=== PATIENT | female | born 1980 | race Caucasian/White ===

== ENCOUNTER 2017-07-31 16:56 | Inpatient (IN) | payer BC ==
[~2017-07-31] VITALS: Ht 157.5 cm; Wt 98.7 kg
[2017-07-31 17:31] VITALS: BP 154/84
[2017-07-31 18:50] LABS: BILIRUBIN,URINE NEGATIVE (NEGATIVE); UROBILINOGEN,URINE NORMAL (NEGATIVE)
--- NOTE | 2017-07-31 18:54 | ER.PDOC ---
General Chief Complaint: Abdomen Pain Stated Complaint: ABD PAIN Time seen by MD: 18:40 Source: patient, family Exam Limitations: no limitations History of Present Illness Initial Comments States generalized ab pains for 1 month. Intermittent but worsening for past 2 weeks. 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 Also hx sliding LLQ ventral hernia she usually self-reduces, but due to current pain, has not tried. No N/V, No diarrhea or const. Has had WILLIAM/BSO due to DUB and FH of uterine CA. Has had lap pramod. Still has appendix. Timing/Duration: 1-3 hours Severity/Quality: moderate Radiation: no radiation Associated Symptoms: denies symptoms Exacerbated by: nothing Relieved By: nothing Allergies: Coded Allergies: Penicillins (Verified Allergy, Unknown, HIVES, 07/31/17) Home Meds No Active Prescriptions or Reported Meds Vital Signs First Vital Signs Date Time Temp Pulse Resp B/P (MAP) Pulse Ox O2 Delivery O2 Flow Rate FiO2 07/31/17 17:29 97.8 71 20 96 07/31/17 17:31 154/84 (107) Last Vital Signs Date Time Temp Pulse Resp B/P (MAP) Pulse Ox O2 Delivery O2 Flow Rate FiO2 07/31/17 17:31 97.8 80 20 154/84 (107) 96 Past Medical History Medical History: no pertinent history Surgical History: cholecystectomy, hysterectomy Social History Smoking: non-smoker Drug Use: none Constitutional: no symptoms reported EENTM: no symptoms reported Respiratory: no symptoms reported Cardiovascular: no symptoms reported Gastrointestinal: see HPI Genitourinary: no symptoms reported Musculoskeletal: no symptoms reported Skin: no symptoms reported Psychiatric/Neurological: no symptoms reported All Other Systems: Reviewed and Negative Physical Exam General Appearance: WD/WN, Moderate Distress HEENT: PERRL/EOMI, Normal ENT Inspection Neck: Non-Tender, Full Range of Motion, Supple Respiratory: chest non-tender, lungs clear, normal breath sounds Cardiovascular: Normal Peripheral Pulses, Regular Rate, Rhythm, No Edema Gastrointestinal: Normal Bowel Sounds, Soft, Guarding, Hernia, Other (Hernia LLQ. 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 Victoria at 19:00. Unable to successfully reduce the hernia and very painful. EKG/XRAY/CT/US CT Comments: Large infraumbilical hernia without stangulation or obstruction Course Blood Pressure Systolic: 154 Blood Pressure Diastolic: 84 Blood Pressure Mean: 107 Departure Time of Disposition: 21:00 Disposition: 01 HOME, SELF-CARE Impression: Primary Impression: Incarcerated ventral hernia Condition: Stable Referrals: Susan WILLIAMSON MD (PCP) PRIMARY CARE PROVIDER Scripts No Active Prescriptions or Reported Meds Comments Admitted to Dr. Barahona. Spoke to Dr. Rubi who will consult. Duration or Time Spent with Pa: 2 hours FITO GEORGE DO Jul 31, 2017 18:54 VIVIAN GUILLEN MD Jul 31, 2017 20:46
[2017-07-31 18:58] LABS: BASOPHIL # 0.1 10^3/uL (0.0-0.1); BASOPHIL % 0.4 % (0.0-0.2); EOSINOPHIL # 0.1 10^3/uL (0.0-0.2); HEMOGLOBIN 14.6 g/dL (12.0-15.0); LYMPHOCYTES # 2.1 10^3/uL (1.0-4.8); LYMPHOCYTES % 16.5 % (24.0-44.0); MEAN CELL HGB 26.2 pg (26-34); MEAN CELL HGB CONCENTRATION 31.5 g/dL (33-37); MEAN PLATELET VOLUME 9.8 fL (7.8-11.0); MONOCYTES # 0.8 10^3/uL (0.3-0.8); MONOCYTES % 5.9 % (5.0-12.0); NEUTROPHIL # 9.7 10^3/uL (1.8-7.7); WHITE BLOOD CELL 12.8 10^3/uL (4.5-11.0)
[2017-07-31] MEDS ORDERED: MORPHINE SULFATE IV ONE (19:00)
[2017-07-31] MEDS ORDERED: MORPHINE SULFATE ONE ×2 (19:01→23:18)
[2017-07-31 19:04] LABS: APPEARANCE,URINE CLEAR (CLEAR); UA COLOR YELLOW (YELLOW)
[2017-07-31] MEDS ORDERED: ZOFRAN IV STA (19:08)
[2017-07-31] MEDS ORDERED: ZOFRAN ONE (19:08)
[2017-07-31 19:13] LABS: CALCIUM 9.1 mg/dL (8.4-10.5)
--- NOTE | 2017-07-31 19:45 | NUR ---
CT PATIENT TO CT VIA WHEELCHAIR
[2017-07-31 19:51] VITALS: BP 112/82
--- NOTE | 2017-07-31 19:53 | NUR ---
RETURN TO ROOM PATIENT RETURNED ROOM IN UNCHANGED CONDITION
[2017-07-31] MEDS ORDERED: NS 1000ML 1,000 ML IV STA (20:01)
[2017-07-31] MEDS ORDERED: NS 1000ML 1,000 ML ONE (20:02)
--- NOTE | 2017-07-31 20:16 | DIREP ---
PROCEDURE:CT ABDOMEN/PELVIS W/ CONTRAST COMPARISON:None. INDICATIONS:Ab Pain LLQ TECHNIQUE:Axial images were created through the abdomen and pelvis with non-ionic intravenous contrast material. No oral contrast was administered. Sagittal and coronal reconstructions were performed from source images. FINDINGS: LUNG BASES:Normal. No visible pulmonary or pleural disease. LIVER:Normal. No significant liver lesions are identified. BILIARY:The gallbladder is surgically absent. There is no biliary ductal dilatation. PANCREAS:Normal. No lesion, fluid collection, ductal dilatation, or atrophy. SPLEEN:Normal. No enlargement or focal lesion. ADRENALS:Normal. No mass or enlargement. URINARY TRACT:Normal. No focal lesions or hydronephrosis. AORTA/VASCULAR:Normal. No aneurysm. RETROPERITONEUM:Normal. No mass or adenopathy. BOWEL/MESENTERY:Small bowel is normal caliber. Mild fecal retention in the colon. No evidence of wall thickening or fluid seen within the hernia containing a loop of the transverse colon. ABDOMINAL WALL:Large infraumbilical hiatus hernia containing a loop of the transverse colon that measures 16.2 x 9.5 x 12 cm. PELVIC ORGANS:The uterus is surgically absent. No visible mass. BONES:Bilateral pars defect of L5 with grade 1 anterolisthesis measuring 5.9 mm. OTHER:Negative. CONCLUSION: Large infraumbilical ventral hernia containing a large loop of the transverse colon. No evidence for obstruction or strangulation. Dictated by: Taran Schaefer MD on 07/31/2017 at 08:08 PM
--- NOTE | 2017-07-31 20:53 | NUR ---
DR CANDELARIA GRANTA SPEAKING WITH WITH DR GAONA PATIENT TO BE ADMITTED PENDING HOSPITALIST ACCEPTANCE
--- NOTE | 2017-07-31 21:04 | PRM.ACF1 ---
Date and Time Date and Time Time: 21:04 Admission Criteria Forms ABDOMINAL PAIN Clinical Indications for Admission to Inpatient Care ( [facility] [place]/check or initial the applicable condition/criteria): Admission is indicated for ANY ONE of the following (1)(2)(3)(4)(5)(6): [ x]I. Surgery needed that cannot be performed on ambulatory basis [ ]II. Peritoneal signs present (eg, rebound tenderness, rigidity) [ ]III. Evaluation requires patient to not eat or drink for extended period ( eg, more than 24 hours). [ ]IV. Inpatient admission required[B] rather than observation care (see Abdominal Pain: Observation Care guideline as appropriate) because of ANY ONE of the following(7)(8)(9): [ ] a) Hemodynamic instability [ ]b) Severe pain requiring acute inpatient management [ ]c) Identification of etiology or finding that requires inpatient care (eg, aortic dissection, free air,bowel ischemia)(10) [ ]d) Absent bowel sounds with complete ileus (11) [ ]e) Signs of intestinal obstruction[C] [ ]f) Suspected toxic megacolon [ ]g) Severe electrolyte abnormalities requiring inpatient care [ ]h) High fever or infection requiring inpatient admission as indicated by ANY ONE of the following (12)(13): [ ]i) Appropriate outpatient or observation care antimicrobial treatment unavailable, not effective, or not feasible [ ]ii) Documented bacteremia [ ]iii) Temperature greater than 104.9 degrees F (40.5 degrees C) (oral) [ ]iv) Temperature greater than 103.1 degrees F (39.5 degrees C) ( oral) or less than 96.8 degrees F (36 degrees C) (rectal) that does not respond to all emergency treatment measures [ ]i) IV fluid required rather than oral rehydration to replace significant ongoing (eg, for greater than 24 hours) losses (greater than 3 L/m2 per day)(14)(15) [ ]j) Percutaneous or open drainage (eg, abscess, biliary tract) procedures [ ]k) Parenteral nutrition regimen that must be implemented on inpatient basis [ ]l) Other condition, treatment, or monitoring requiring inpatient admission Extended stay beyond goal length of stay may be needed for (1)(3)(4)(10)(16): [ ]a) Surgery (e.g., colectomy, revascularization procedure) [ ]b) Persistent abdominal pain with suspected intra-abdominal process [ ]c) Diagnosed condition requiring continued stay (e.g., pancreatitis, complicated diverticulitis) The original [facility] [employer] content created by [facility] has been revised. The portions of the content which have been revised are identified through the use of italic text, and [facility] has neither reviewed nor approved the modified material.All other unmodified content is copyright [facility]. Please see references footnoted in the original [facility] edition 2015 VIVIAN GUILLEN MD Jul 31, 2017 21:04
--- NOTE | 2017-07-31 21:07 | NUR ---
DR SUNNY LAND WITH DR CORREA , PATIENT TO BE ADMITTED TO MED SURG
[2017-07-31 21:09] VITALS: BP 121/72
--- NOTE | 2017-07-31 21:25 | NUR ---
DR CANDELARIA GAONA AT BEDSIDE
[2017-07-31] MEDS ORDERED: DULCOLAX EC TABLET PO STA (21:56)
[2017-07-31] MEDS ORDERED: D5W-1/2 NS/KCL 20MEQ 1,000 ML ONE (21:59)
[2017-07-31] MEDS ORDERED: ZOFRAN IV PRN (22:00)
--- NOTE | 2017-07-31 22:04 | NUR ---
ARRIVAL PT ARRIVED TO FLOOR VIA W/C. NO S/S OF DISTRESS NOTED. WILL CONT TO MONITOR. CALL LIGHT WITHIN REACH.
--- NOTE | 2017-07-31 22:04 | NUR ---
report report called to Lu PlasenciaRN
[2017-07-31] MEDS ORDERED: PEPCID ONE (22:09)
[2017-07-31] MEDS ORDERED: NS 100ML 100 ML IV ONE (22:09)
[2017-07-31] MEDS ORDERED: MEFOXIN ONE (22:13)
[2017-07-31 22:15] VITALS: BP 135/87
[2017-07-31] MEDS: SINGULAIR PO SCH (22:24)
[2017-07-31] MEDS: PEPCID IV SCH (22:25)
[2017-07-31] MEDS ORDERED: VENTOLIN IH PRN (22:30)
[2017-07-31] MEDS ORDERED: ATROVENT IH PRN (22:30)
[2017-07-31] MEDS: LOVENOX SQ SCH (22:34)
[2017-07-31] MEDS: MEFOXIN 1 GM in NS 100ML 100 ML IV SCH (22:35)
[2017-07-31] MEDS: D5W-1/2NS 1000ML 1,000 ML IV SCH ×2 (22:42)
[2017-07-31] MEDS: KLOR-CON 10 PO SCH (22:42)
--- NOTE | 2017-07-31 23:12 | NUR ---
CONSENT SURGICAL CONSENT SIGNED
[2017-07-31] MEDS: MORPHINE SULFATE IV PRN (23:20)
[2017-08-01] VITALS (8 sets, daily range): BP systolic 94–150; BP diastolic 50–83
--- NOTE | 2017-08-01 | NUR ---
NPO PT NPO @ 0000. PT TEACHING GIVEN. PT VERBALIZED UNDERSTANDING. WILL CONT TO MONITOR.
[2017-08-01] MEDS: KLOR-CON 10 PO SCH (01:51)
[2017-08-01] MEDS ORDERED: MEFOXIN ONE ×2 (05:08→09:27)
[2017-08-01] MEDS ORDERED: NS 100ML 100 ML IV ONE ×2 (05:13→09:27)
[2017-08-01] MEDS ORDERED: MORPHINE SULFATE ONE (05:14)
[2017-08-01] MEDS: MORPHINE SULFATE IV PRN (05:23)
[2017-08-01] MEDS: D5W-1/2NS 1000ML 1,000 ML IV SCH ×3 (05:45→12:56)
[2017-08-01] MEDS: MEFOXIN 1 GM in NS 100ML 100 ML IV SCH ×3 (05:45)
[2017-08-01] MEDS ORDERED: ATROVENT IH SCH ×2 (08:00)
[2017-08-01] MEDS ORDERED: DUONEB 0.5 MG-3 MG/3 ML SOLN IH ONE ×2 (08:06→08:59)
[2017-08-01] MEDS ORDERED: LACTATED RINGERS 1,000 ML ONE (08:11)
[2017-08-01] MEDS: PEPCID IV SCH ×2 (08:28→20:18)
[2017-08-01] MEDS: PULMICORT IH SCH ×2 (08:28→20:17)
[2017-08-01] MEDS: DUONEB 0.5 MG-3 MG/3 ML SOLN IH SCH ×3 (08:31→20:17)
[2017-08-01] MEDS ORDERED: MORPHINE SULFATE IV PRN ×2 (08:49→12:30)
[2017-08-01] MEDS ORDERED: SODIUM CHLORIDE IR ONE (08:54)
[2017-08-01] MEDS ORDERED: SENSORCAINE-MPF 0.5% VIAL ONE (08:54)
[2017-08-01] MEDS ORDERED: SODIUM CHLORIDE IRR BAG 1,000 ML ONE (08:54)
[2017-08-01] MEDS ORDERED: DECADRON ONE ×2 (09:02→09:04)
[2017-08-01] MEDS ORDERED: NEOSTIGMINE ONE (09:03)
[2017-08-01] MEDS ORDERED: ZOFRAN ONE (09:03)
[2017-08-01] MEDS ORDERED: QUELICIN ONE (09:03)
[2017-08-01] MEDS ORDERED: LIDOCAINE 2% VIAL ONE (09:03)
[2017-08-01] MEDS ORDERED: DILAUDID ONE (09:03)
[2017-08-01] MEDS ORDERED: ZEMURON IV ONE (09:03)
[2017-08-01] MEDS ORDERED: TORADOL ONE (09:03)
[2017-08-01] MEDS ORDERED: DIPRIVAN IV ONE (09:04)
[2017-08-01] MEDS ORDERED: SUBLIMAZE ONE (09:04)
[2017-08-01] MEDS ORDERED: NAROPIN 0.2% 40 MG/20 ML VIAL ONE (09:04)
[2017-08-01] MEDS ORDERED: LACTATED RINGERS 2,000 ML ONE (09:05)
--- NOTE | 2017-08-01 09:08 | NUR ---
OFF UNIT PT OFF UNIT OT OR AT THIS TIME
[2017-08-01] MEDS ORDERED: VENTOLIN IH ONE (09:14)
--- NOTE | 2017-08-01 09:58 | HPH ---
ADMIT DATE: 08/01/2017 CHIEF COMPLAINT: Abdominal pain. HISTORY OF PRESENT ILLNESS: The patient is a 37-year-old woman with a past medical history significant for asthma with large ventral hernia. She complained of abdominal pain that has been intermittent for about a month, but worsening over the last 2 weeks. About 30 minutes prior to arrival to the ER, the pain became severe in nature. She has a known ventral hernia and usually is able to reduce the hernia herself. She denied any nausea, vomiting or diarrhea. She has no recent trauma. She has had prior surgeries including cholecystectomy and total hysterectomy. She is ambulatory. She is not on home oxygen. She does take nebulizer treatments occasionally. PAST MEDICAL HISTORY: Includes asthma. PAST SURGICAL HISTORY: She had had a cholecystectomy, hysterectomy. ALLERGIES: NO KNOWN DRUG ALLERGIES. HOME MEDICATIONS: List only includes Singulair, Advair, also takes nebulizer treatments with albuterol as needed. SOCIAL HISTORY: No alcohol, tobacco or illicit drug use history. Lives at home. FAMILY HISTORY: Negative for early coronary artery disease or diabetes. REVIEW OF SYSTEMS: CARDIAC: Denies chest pain, shortness of breath or dyspnea on exertion. PULMONARY: No cough, sputum production or pleuritic chest pain. GASTROINTESTINAL: No nausea, vomiting, diarrhea or constipation. All else negative in 10 point review of system except as in HPI. PHYSICAL EXAMINATION: VITAL SIGNS: Upon arrival to the ER, height 157.5 cm, weight 99.8 kilograms, temperature 97.8, pulse 80, respiratory rate is 20, blood pressure 154/84, O2 saturation 96% on room air. GENERAL: She is alert, in no acute distress at time of exam, pleasant lady. HEENT: Pupils equal, round, reactive to light. Sclerae are anicteric. Oropharynx is clear. Mucous membranes are moist. NECK: Supple, no lymphadenopathy. CARDIOVASCULAR: At time of exam was regular rate and rhythm. LUNGS: Clear bilaterally at time of exam. No wheezing. ABDOMEN: Soft. Bowel sounds are present. Tender to palpation and had a large ventral hernia noted. EXTREMITIES: No cyanosis, clubbing or significant edema. NEUROLOGIC: Grossly nonfocal. LABORATORY DATA: CBC: White count 12.8, hemoglobin 14.6 and platelets 348. Differential: 76% neutrophils, 16% lymphocytes, 6% monocytes. Sodium 141, potassium 3.4, chloride 105, CO2 is 27, BUN 13, creatinine 1, glucose 132, calcium 9.1, total bilirubin 0.6, AST 7, ALT 12, alkaline phosphatase 79, total protein 7.5, albumin 3.5, lipase is 159. PT of 10.4, PTT 24.1. UA, pH is 5.0, specific gravity is 1.020, all else is negative. IMAGING STUDIES: CT abdomen and pelvis performed in the Emergency Room does reveal a large infraumbilical ventral hernia containing large loop of transverse colon. ASSESSMENT AND PLAN: The patient is a 37-year-old woman here with a ventral hernia containing large loop of bowel without strangulation at this point with significant abdominal pain with history of asthma. 1. From pulmonary point of view, we will continue her Singulair, DuoNeb scheduled, Pulmicort scheduled and albuterol as needed. 2. Appropriate p.r.n. pain and nausea medication. 3. General surgery is consulted for management of ventral hernia. 4. DVT prophylaxis will be with Lovenox. Time spent on 08/01/2017 is 45 minutes. This plan was discussed with the patient. She is her own decision maker. She does understand and concur with plans. Tomas Barahona MD DR: GERALDINE/nola JOB# [id number]
[2017-08-01] MEDS: D5W IV SCH ×2 (12:00→17:23)
[2017-08-01] MEDS: MEFOXIN IV SCH ×2 (12:00→17:23)
[2017-08-01] MEDS ORDERED: DUONEB 0.5 MG-3 MG/3 ML SOLN IH STA (12:13)
[2017-08-01] MEDS: DILAUDID IV PRN ×3 (12:19→12:40)
[2017-08-01] MEDS ORDERED: PHENERGAN IV PRN (12:30)
[2017-08-01] MEDS ORDERED: ZOFRAN IV PRN (12:30)
[2017-08-01] MEDS ORDERED: APRESOLINE IV PRN (12:30)
[2017-08-01] MEDS ORDERED: SUBLIMAZE IV PRN (12:30)
--- NOTE | 2017-08-01 12:47 | NUR ---
ARRIVAL PT ARRIVED FROM OR AT THIS TIME. REPORT RECEIVED AND ASSUMED CARE OF PT
[2017-08-01] MEDS: LACTATED RINGERS 1,000 ML IV SCH ×2 (12:59→22:47)
[2017-08-01] MEDS: NORCO 5MG PO PRN ×2 (15:11→20:19)
--- NOTE | 2017-08-01 17:06 | OPH ---
DATE OF SURGERY: PREOPERATIVE DIAGNOSIS: Recurrent incarcerated incisional hernia in the infraumbilical midline. POSTOPERATIVE DIAGNOSES: 1. Recurrent incisional hernia, incarcerated transverse colon. 2. Partial volvulus of the transverse colon. 3. Extensive intraabdominal adhesions. SURGEON: Conor Rubi DO PILOT SUBMERSIBLE: OR staff. ANESTHESIA: General by Jacque Kim CRNA plus local used on the field as well as a TAP block provided by Anesthesia at the end of the case. PROCEDURES PERFORMED: 1. Laparoscopic lysis of adhesions converted to exploratory laparotomy with release of partial volvulus of transverse colon. 2. Open lysis of adhesions. 3. Open incisional hernia repair. SPECIMENS: Hernia sac to path. ESTIMATED BLOOD LOSS: 43 mL. COUNTS: At the completion of the case, the counts were correct per OR staff. DESCRIPTION OF PROCEDURE: The patient is a 37-year-old female known from previous evaluation. Prior to procedure, informed consent was obtained. At time of procedure, she was taken to the operative suite and placed in supine position. After time-out was completed, general anesthesia was obtained. Keys catheter was inserted by the nursing service. Her abdomen was prepped and draped in normal fashion. Local was used to anesthetize supraumbilical midline. Incision was created and 5 mm trocar was introduced into the abdomen with Endo camera visualization. Once in the abdomen, pneumoperitoneum was induced to the level of 14 mmHg. Next, with camera visualization, the trocar was placed laterally in the right lower quadrant. Next, with 2 point visualization, there was noted to be extensive adhesions in the abdomen. There was noted to be some adhesions in the left upper quadrant from the abdominal wall to the liver, which were taken down using sharp scissors. Next, in the infraumbilical midline, there was noted to be significant adhesions consistent with the CT scan preoperatively visualized. All the easy to identify adhesions were taken down using laparoscopic EndoShears and electrocautery. However, due to concern for visceral organs being involved and inadequate exposure to allow complete visualization, conversion to open was indicated. After reduction of pneumoperitoneum, an infraumbilical incision was created through an existing scar. Electrocautery was used to completely dissect down to the level of the sac, which was entered. It was extended superiorly and inferiorly. It was noted that the transverse colon was involved as a point of fixed adhesion to the left side of the hernia sac causing a partial volvulus of the transverse colon. This was released and subsequently the remainder of the transverse colon was reduced; however, there was noted to be adhesions of the omentum to the sac that were taken down using sharp dissection and electrocautery. Once the entire contents were mobilized and reduced, from the field. The omentum was inspected. There was noted to be a defect in the omentum that was repaired using a running 2-0 Vicryl suture. After omentopexy was completed, the abdominal contents were returned. Fascia was cleared superficially to allow exposure and the hernia sac was removed from the surrounding tissues using electrocautery. So, there was not significant tissue tension and the mesh that was described as being used previously on the patient was not identified. Subsequently, the defect was repaired from the superior apex with running looped PDS to the midportion and a second partially looped PDS in the inferior portion and the mid portion. After the defect was completely repaired, the wound bed was irrigated. The umbilical stalk was reapproximated with the fascia using a 2-0 Vicryl suture. With the existing laparoscopy trocars, pneumoperitoneum was reinduced. There was noted to be no signs of air leak from the fluid that was placed in the incision site. The visceral contents were inspected. There was noted to be good hemostasis and no signs of visceral organ injury. Next, a piece of Seprafilm was brought onto the field, made into a slurry and placed into the lower abdomen at the site of previous adhesions. After this was completed, the lateral trocar was removed with camera visualization. There was noted to be no bleeding. The superior trocar was removed with camera visualization after reduction of pneumoperitoneum with camera visualization through the trocar tract. In the infraumbilical incision, a drain was passed out through a lateral stab incision, secured with a nylon suture. This deep tissue was closed with interrupted 2-0 Vicryl, subcutaneous tissue was closed with interrupted 3-0 Vicryl and skin was closed with 4-0 Monocryl in running subcuticular fashion. The patient was cleaned. Steri-Strips and dressings were applied. Drapes removed. The patient currently remains in the OR under the care of the Department of Anesthesia for a TAP block. After that is completed, then we will awaken her and deliver her to the recovery room. Conor Rubi DO DR: Clarice JOB# [id number] CC: . Valentino Barahona MD MTDKrystian
--- NOTE | 2017-08-01 18:27 | NUR ---
REPORT REPORT GIVEN TO Rafiq PLASCENCIA LVN AND RELINQUISHED CARE
--- NOTE | 2017-08-01 18:58 | NUR ---
Report Received report Artemio Escobar LVN
--- NOTE | 2017-08-01 20:00 | NUR ---
Patient up ambulating in hallway. Tolerating well
[2017-08-01] MEDS: SINGULAIR PO SCH (20:19)
--- NOTE | 2017-08-01 20:21 | CNH ---
DATE OF CONSULTATION: CHIEF COMPLAINT: Incarcerated hernia. HISTORY OF PRESENT ILLNESS: This is a 37-year-old female who presents to ER at [facility]. She reports to me that she had a midline hernia repaired 4 years ago at the same time she was having hysterectomy and bladder repair. This was done in another facility and they used mesh, but she is uncertain if it was an overlay or inlay and what type of mesh was used. She reports that approximately 6 months ago, she noticed a recurrence of her hernia and that she has typically had no problems, but over the last 2 weeks, she has been unable to reduce it. It has become more and more uncomfortable. After she ate supper tonight, the pain became fairly significant. She presented to the ER at [facility] where she was evaluated, had a CAT scan and lab studies that show changes consistent with incarcerated, but not strangulated hernia. She was initially scheduled to be admitted to the floor. However, I saw her in the Emergency Department and again on the floor. She reports that her pain was improved with the IV morphine. She denies any nausea, vomiting, fever, chills or other constitutional symptoms. She is very cooperative with my history and physical. PAST MEDICAL HISTORY: She only reports asthma. She clearly denies hypothyroidism, diabetes or hypertension. PAST SURGICAL HISTORY: Includes laparoscopic cholecystectomy, , hysterectomy, bladder suspension and hernia repair. ALLERGIES: INCLUDE PENICILLIN per her report. OUTPATIENT MEDICATIONS: Include albuterol p.r.n., Singulair 10 mg p.o. at bedtime and Advair. INPATIENT MEDICATIONS: Will be per the electronic medical record. SOCIAL HISTORY: Negative for tobacco or illicit drug use, is positive for rare alcohol consumption. FAMILY HISTORY: Father is living at age 70 and is relatively unhealthy. Mother is living in her 60s and has a history of breast cancer on more than one occasion. REVIEW OF SYSTEMS: CONSTITUTIONAL: No fever, chills or weakness. ENDOCRINE: She denies thyroid disease or known diabetes. CARDIOVASCULAR: She denies chest pain, trouble breathing at this time. PULMONARY: She has no acute dyspnea or cough, but she reports her last asthma attack was in the last 2 weeks. She has a strong history for asthma. SEASONAL ALLERGIES: She does report some seasonal allergies and associated variation with her asthma. ABDOMEN: As per HPI. MUSCULOSKELETAL: No acute complaints. NEUROLOGIC: She denies any history of seizure or blackouts. PSYCHIATRIC: She denies depression, stress or anxiety. GENITOURINARY: She denies dysuria, frequency, urgency. PHYSICAL EXAMINATION: VITAL SIGNS: Afebrile female, last temperature is 97.8, pulse 61, respiratory rate of 16, blood pressure 121/72 and O2 sat is 95%. GENERAL: Alert and pleasant 37-year-old female who is oriented x 3. She is cooperative with exam and very pleasant. HEENT: Normocephalic, atraumatic. [place] mucous membranes. NECK: Supple and soft. Trachea is midline. She has no JVD or thyromegaly. HEART: Has essentially regular rate and rhythm without obvious murmur. LUNGS: Clear to auscultation posteriorly, but there is a slight expiratory wheeze noted on the left side on complete examination. ABDOMEN: The bowel sounds are positive and soft. Infraumbilically, she has a clear ventral hernia that is likely associated with an old incision. I made attempts to gently reduce it and is partially reducible, but not completely reducible. EXTREMITIES: Show positive radial pulse bilaterally. Positive dorsal pedal pulse bilaterally. NEUROLOGIC: No acute findings. Cranial nerves 2-12 are grossly intact. SKIN AND INTEGUMENT: Warm and dry. LABORATORY STUDIES: White count 12.8, hemoglobin 14.6 and platelet count 348. Chemistry shows BUN of 13, creatinine of 1.02, potassium 3.4. Coag studies show PT of 10.4, PTT of 24.1. Urine shows specific gravity 1.020. She has leukocyte esterase positive with occasional WBC in the urine. IMAGING STUDIES: She has a CAT scan that shows an incarcerated midline hernia without obvious strangulation. SURGICAL ASSESSMENT: 1. Incarcerated incisional hernia in the lower abdomen. 2. History of asthma. 3. Hypokalemia. 4. Clinical dehydration. 5. Pyuria. PLAN: 1. The patient is seen and examined. Chart is reviewed. 2. She will be given GI and DVT prophylaxis. We will restart some of her home asthma meds and wait for evaluation by Medicine. 3. I have discussed this case clearly with the patient and her family as well as the hospitalist. We will plan for an elective hernia repair tomorrow; however, if she becomes worse, we may be forced to have emergency hernia repair. The patient has been advised regarding surgical options, the possibility of laparoscopy being present, but low and that she might require further synthetic mesh. The patient and her expressed understanding. 4. Due to the pyuria and elevated white count, we will order empiric IV ABX. Conor Rubi DO DR: STEVEN/nola JOB# [id number] CC: Susan Barahona MD MTDD
[2017-08-01] MEDS: LOVENOX SQ SCH (21:18)
[2017-08-02] MEDS: D5W IV SCH ×4 (00:20→19:01)
[2017-08-02] MEDS: MEFOXIN IV SCH ×4 (00:20→19:01)
[2017-08-02 00:49] VITALS: BP 97/56
--- NOTE | 2017-08-02 01:36 | NUR ---
Patient resting in bed with eyes closed. Resp even and non labored. No s/s of distress noted at this time. Will continue to monitor. Call light within reach.
[2017-08-02] MEDS ORDERED: ATIVAN ONE (01:53)
[2017-08-02] MEDS: NORCO 5MG PO PRN ×3 (02:03→19:01)
[2017-08-02] MEDS: DUONEB 0.5 MG-3 MG/3 ML SOLN IH SCH ×3 (03:31→20:47)
[2017-08-02 04:03] VITALS: BP 118/64
[2017-08-02 05:52] LABS: HEMOGLOBIN 13.5 g/dL (12.0-15.0); LYMPHOCYTES # 0.8 10^3/uL (1.0-4.8); LYMPHOCYTES % 5.7 % (24.0-44.0); MEAN CELL HGB 26.4 pg (26-34); MEAN CELL HGB CONCENTRATION 31.4 g/dL (33-37); MEAN CORP VOLUME 84.1 fL (78-100); MEAN PLATELET VOLUME 10.1 fL (7.8-11.0); MONOCYTES # 0.6 10^3/uL (0.3-0.8); MONOCYTES % 3.9 % (5.0-12.0); NEUTROPHIL # 12.7 10^3/uL (1.8-7.7); NEUTROPHILS % 90.2 % (41.0-85.0); RED CELL DISTRIBUTION WIDTH 14.4 % (11.5-14.5); WHITE BLOOD CELL 14.1 10^3/uL (4.5-11.0)
[2017-08-02 06:32] LABS: BAND NEUTROPHILS 1 % (2-6); LYMPHOCYTE 6 % (25-36); MONOCYTE 2 % (3-9); SEGMENTED NEUTROPHILS 91 % (31-76)
[2017-08-02 06:37] LABS: CALCIUM 9.5 mg/dL (8.4-10.5); CARBON DIOXIDE 25.5 mmol/L (20.0-32)
--- NOTE | 2017-08-02 08:09 | NUR ---
Post op pain rounds POD #1 after TAP block for surgery. pt is lying in bed. States pain has never gone above 6/10. Says pain before surgery was much worst and appreciates the block very much. Has been taking pain medications. Has not ambulated as of yet. No complications noted.
[2017-08-02 08:12] VITALS: BP 111/67
[2017-08-02] MEDS: PULMICORT IH SCH ×2 (08:27→20:47)
[2017-08-02] MEDS: LACTATED RINGERS 1,000 ML IV SCH ×2 (08:30→18:30)
--- NOTE | 2017-08-02 08:30 | NUR ---
AMBULATE PT AMBULATED 200FT. PT DENIES PAIN OR DISCOMFORT AT THIS TIME
[2017-08-02] MEDS: PEPCID IV SCH ×2 (08:48→21:07)
[2017-08-02] MEDS ORDERED: PULMICORT IH ONE (09:00)
[2017-08-02] MEDS ORDERED: DUONEB 0.5 MG-3 MG/3 ML SOLN IH ONE (09:00)
--- NOTE | 2017-08-02 09:50 | NUR ---
DISCHARGE PLAN LIVES AT HOME WITH AND 2 CHILDREN AGES 15 YEARS OLD AND 10 YEARS OLD. INDEPENDENT. DENIES NEED FOR DME OR OXYGEN AT THIS TIME. GOAL FOR PT IS TO DISCHARGE HOME WITH AND CHILDREN. WILL CONTINUE TO FOLLOW DISCHARGE NEEDS.
[2017-08-02 12:21] VITALS: BP 122/62
--- NOTE | 2017-08-02 13:27 | NUR ---
Ambulate pt ambulating in halls, no complaints of pain or discomfort, changing abdominal dressing when pt returns to room
--- NOTE | 2017-08-02 15:30 | NUR ---
Ambulate pt up ambulating in halls, denies pain. will continue to monitor
[2017-08-02 16:42] VITALS: BP 105/57
--- NOTE | 2017-08-02 18:50 | NUR ---
Report Received report from Mariah Johnson RN Addendum: 08/02/17 at 2233 by Chante Puri LVN LVN Mariah Johnson LVN
[2017-08-02 20:03] VITALS: BP 115/70
[2017-08-02] MEDS: SINGULAIR PO SCH (21:07)
[2017-08-02] MEDS: LOVENOX SQ SCH (22:37)
--- NOTE | 2017-08-02 23:14 | PNH ---
DATE: 08/02/2017 SUBJECTIVE: A 37-year-old female in no acute distress. She is tolerating some diet and activity today. OBJECTIVE: VITAL SIGNS: Last temperature is 97.8, pulse 73, respiratory rate 18, blood pressure 105/57, and O2 sat 92%. ABDOMEN: Bowel sounds positive, soft. She has no significant tenderness. LABORATORY DATA: Today show white count is 14.1, hemoglobin 13.5, platelet count 382,000. Chemistry, she has normal potassium, BUN of 8, creatinine 0.95. Her drain output is apparently decreasing. ASSESSMENT: Postoperative day #1, laparoscopic lysis of adhesions and open hernia repair. PLAN: 1. The patient is seen and examined. Chart is reviewed. 2. Increase diet and activity as tolerated. 3. If she improves appropriately, then we will plan to discontinue her drain before she goes home. Conor Rubi DO DR: STEVEN/nola JOB# [id number] CC: Susan Barahona MD
[2017-08-03 00:22] VITALS: BP 121/61
[2017-08-03] MEDS: MEFOXIN IV SCH ×3 (00:48→12:51)
[2017-08-03] MEDS: D5W IV SCH ×3 (00:48→12:51)
[2017-08-03] MEDS: DUONEB 0.5 MG-3 MG/3 ML SOLN IH SCH ×2 (03:10→08:34)
[2017-08-03] MEDS: LACTATED RINGERS 1,000 ML IV SCH (04:30)
[2017-08-03 05:04] VITALS: BP 116/60
[2017-08-03 06:01] LABS: BASOPHIL % 0.2 % (0.0-0.2); EOSINOPHIL % 0.1 % (0.0-5.0); HEMOGLOBIN 12.4 g/dL (12.0-15.0); LYMPHOCYTES # 2.3 10^3/uL (1.0-4.8); LYMPHOCYTES % 25.4 % (24.0-44.0); MEAN CELL HGB 26.3 pg (26-34); MEAN CELL HGB CONCENTRATION 30.9 g/dL (33-37); MEAN CORP VOLUME 85.1 fL (78-100); MEAN PLATELET VOLUME 9.8 fL (7.8-11.0); MONOCYTES # 0.8 10^3/uL (0.3-0.8); NEUTROPHIL # 5.8 10^3/uL (1.8-7.7); NEUTROPHILS % 65.1 % (41.0-85.0); RED CELL DISTRIBUTION WIDTH 14.9 % (11.5-14.5); WHITE BLOOD CELL 8.9 10^3/uL (4.5-11.0)
[2017-08-03] MEDS: NORCO 5MG PO PRN (06:04)
--- NOTE | 2017-08-03 06:45 | NUR ---
REPORT REPORT RECEIVED FROM SUPERVISOR LEAD REFINERY
--- NOTE | 2017-08-03 06:45 | NUR ---
Report Report given to Lino Garcia RN
[2017-08-03 08:05] VITALS: BP 103/57
[2017-08-03] MEDS: PEPCID IV SCH (08:12)
[2017-08-03] MEDS: PULMICORT IH SCH (08:34)
--- NOTE | 2017-08-03 11:16 | NUR ---
AMBULATE PT AMBULATED 200 FEET WITH AT SIDE. NO C/O PAIN OR DISCOMFORT AT THIS TIME
--- NOTE | 2017-08-03 12:03 | NUR ---
TAMI DRAIN REMOVED AT THIS TIME
[2017-08-03 12:16] VITALS: BP 104/66
[2017-08-03] MEDS ORDERED: ACET-685 PO (12:46)
[2017-08-03 14:10] VITALS: BP 104/66
--- NOTE | 2017-08-03 14:10 | NUR ---
DISCHARGE PT DISCHARGED AT THIS TIME. PT UNDERSTANDS ALL DISCHARGE INSTRUCTIONS AND FOLLOW UP WITH . PT UNDERSTANDS RESTRICTIONS. PT DENIES ANY OTHER QUESTIONS OR CONCERNS AT THIS TIME. PT LEAVE BY WHEELCHAIR TO PRIVATE VEHICLE ACCOMPANIED BY
--- NOTE | 2017-08-03 20:04 | PNH ---
DATE: 08/02/2017 SUBJECTIVE: She denies any significant uncontrolled pain. She has not passed any flatus or bowel movement. She denies any nausea or vomiting. She is not ambulating a significant amount. OBJECTIVE: VITAL SIGNS: T-max last 24 hours is 98.8, pulse 70, respiratory rate is 18, blood pressure is 105/57, and O2 saturation 92% on room air. GENERAL: She is alert, in no acute distress at time of exam. HEENT: Pupils equal, round, reactive to light. Sclerae are anicteric. Oropharynx is clear. Mucous membranes are moist. NECK: Supple, no lymphadenopathy. CARDIOVASCULAR: At time of exam was regular rate and rhythm. LUNGS: Clear bilaterally. ABDOMEN: Soft. Bowel sounds are present, nontender to palpation. EXTREMITIES: No cyanosis, clubbing or significant edema. NEUROLOGIC: Grossly nonfocal. LABORATORY DATA: CBC: White count 14.1, hemoglobin 13.5 and platelets 383. Differential: 90% neutrophils, 6% lymphocytes, 4% monocytes. Sodium 140, potassium 4.3, chloride 104, CO2 is 25, BUN 8, creatinine 0.95, glucose is 173, calcium is 9.5. ASSESSMENT AND PLAN: The patient is a 37-year-old woman here status post surgical repair of ventral hernia with history of asthma. 1. We will continue current IV antibiotics. 2. Appropriate p.r.n. pain and nausea medication. 3. Nebulizer treatments scheduled and as needed. 4. Encourage frequent ambulation. 5. DVT prophylaxis with Lovenox. Time spent on 08/02/2017 is 25 minutes. Tomas Barahona MD DR: GERALDINE/nola JOB# [id number]
--- NOTE | 2017-08-03 21:10 | DSH ---
DATE OF DISCHARGE: 08/03/2017 ADMITTING DIAGNOSES: Abdominal pain with ventral hernia and asthma. DISCHARGE DIAGNOSES: Ventral hernia, status post ventral hernia repair with asthma. HOSPITAL COURSE: The patient is a 37-year-old female who came in with a large ventral hernia with abdominal pains for over 2 weeks that was worsening. DO Greyson was consulted and he did a laparoscopic lysis of adhesions which was converted to exploratory laparotomy with release of partial volvulus of transverse colon and open lysis of adhesions and open incisional hernia repair. After surgery, her white count did jump up and she was continued with fluids and pain control. Today, her white count is normal. She is tolerating p.o. intake. She is moving around good. Her pain is much improved. She is stable for discharge at this point. TAMI drain has been pulled. She is to follow up with DO Greyson next week. Advance diet as tolerated and continue home medications as is. I have asked her to ambulate frequently at home and follow up with her PCP in [place] in 3-4 weeks. Jazz Teague MD DR: DARSHAN/nola JOB# [id number]
== END 2017-08-03 14:31 | disposition home or self-care (01) | DRG 335 ==
LOC: ER 16:56 → MS 21:08 → EDBEDREQ 21:09
PROVIDERS: ADMIT Internal Medicine; ATTEND Pediatrics
PROC: 0DNW4ZZ Release Peritoneum, Percutaneous Endoscopic Approach (ICD-10-PCS; 2017-08-01)
PROC: 0WQF0ZZ Repair Abdominal Wall, Open Approach (ICD-10-PCS; principal; 2017-08-01 09:19)
DX: K43.2 Incisional hernia without obstruction or gangrene (principal); K56.2 Volvulus; N39.0 Urinary tract infection, site not specified; D72.829 Elevated white blood cell count, unspecified; E87.6 Hypokalemia; E86.0 Dehydration; J45.909 Unspecified asthma, uncomplicated; K66.0 Peritoneal adhesions (postprocedural) (postinfection); Z53.31 Laparoscopic surgical procedure converted to open procedure; Z90.710 Acquired absence of both cervix and uterus; Z90.49 Acquired absence of other specified parts of digestive tract; Z88.0 Allergy status to penicillin; Z85.42 Personal history of malignant neoplasm of other parts of uterus
CPT/HCPCS: 36415; 64488; 74177; 80048; 80053; 81000; 83690; 85025; 85610; 85730; 88302; 94640; 96374; 96375; 99285; J0330; J1100; J1170; J1650; J1885; J2001; J2270; J2405; J2795; J3010; J3480; J3490; J7030; J7050; J7060; J7070; J7120; J7620; J7627; Q9967; A9270; J0694; J2710

== ENCOUNTER → 2017-08-25 | Outpatient (CLI) | payer BC ==
[~2017-08-25] MED LIST: ACET-685 PO
--- NOTE | 2017-08-25 11:15 | DIREP ---
PROCEDURE:CT ABDOMEN/PELVIS W/O CONTRAST COMPARISON:[facility], CT, CT ABD/PELVIS W/ CONTRAST, 07/31/2017, 07:32 PM. INDICATIONS:K43.2 INCISIONAL HERNIA WITHOUT OBSTRUCTION OR GANGRENE TECHNIQUE:Axial images were created through the abdomen and pelvis without intravenous contrast material. Oral contrast was administered. Sagittal and coronal reconstructions were performed from source images. FINDINGS: LUNG BASES:No suspicious airspace consolidation or pleural effusion. LIVER:No suspicious focal hepatic lesion. BILIARY:Previous cholecystectomy. PANCREAS:No suspicious pancreatic abnormality. SPLEEN:The spleen is not significantly enlarged. No focal splenic lesion identified. ADRENALS:The adrenal glands are unremarkable. URINARY TRACT:No urinary calculi or hydronephrosis. No suspicious renal contour deforming lesion identified. AORTA/VASCULAR:No aneurysmal dilatation. RETROPERITONEUM:No suspicious retroperitoneal lymphadenopathy. BOWEL/MESENTERY:No evidence for small bowel obstruction. No gross colonic abnormality. Nonvisualization of the appendix without secondary signs to suggest acute appendicitis. No free air. ABDOMINAL WALL:Postoperative changes of interval midline ventral abdominal wall hernia repair. There is an approximate 8.8 x 6.2 x 6.9 cm (cc, AP, TV) fluid collection occupying the region of prior herniation. This may reflect postoperative seroma. Superimposed infection would be difficult to reliably exclude, particularly as there does appear to be mild stranding of the surrounding subcutaneous fat. There is a tiny fat containing right paramedian ventral abdominal wall hernia just superior to the fluid collection. PELVIC ORGANS:Urinary bladder is not significantly distended. The uterus appears absent. No free fluid within the pelvis. BONES:Bilateral pars interarticularis defects at L5 with approximate 6 mm anterolisthesis. Associated degenerative disc disease at the lumbosacral junction. No acute abnormality. CONCLUSION: 1. Interval postoperative changes of ventral abdominal wall hernia repair. There is now a fluid collection occupying the region of previously seen hernia. This may reflect postoperative seroma; however, superimposed infection would be difficult to reliably exclude as there is mild stranding of the surrounding subcutaneous fat. If clinically warranted, this should be amenable to image guided aspiration. 2. Additional findings as above. Dictated by: Orlando Barahona M.D. On 08/25/2017 at 10:58 AM
== END | disposition home or self-care (01) ==
LOC: RAD 08:28
PROVIDERS: ATTEND Surgery
DX: K43.2 Incisional hernia without obstruction or gangrene (principal)
CPT/HCPCS: 74176